=== PATIENT | male | born 1965 | race Caucasian/White ===

== ENCOUNTER 2018-03-28 12:07 | Observation (INO) | payer OTHER ==
--- NOTE | 2018-03-28 12:16 | EDPHY ---
H & P Time Seen by Provider: 03/28/18 12:12 HPI/ROS: CHIEF COMPLAINT: Syncope HISTORY OF PRESENT ILLNESS: Patient is a 53-year-old male who presents emergency department after having multiple syncopal episodes. Patient states that he hikes regularly at altitude. He has been draining for trip in the [facility] in April. He was hiking at approximately 9300 ft when he had increased shortness of breath. This was atypical. He also describes bilateral neck pain. He was slow coming down the mountain due to his fatigue. Once in the car the symptoms did not improve. He has his to take him to the hospital. He subsequently had multiple episodes of syncope. This was witnessed by the fire department. EMS found the patient awake and alert. He has been awake alert in route. He had no ischemic findings on his EKG. Patient still complains of mild bilateral neck discomfort. No focal weakness or numbness. No visual change. No chest pain. Patient shortness of breath has improved. No recent cough or fever. No leg pain or swelling. REVIEW OF SYSTEMS: My complete review of systems is negative except as mentioned in the HPI. Past Medical/Surgical History: Denies Physical Exam: Vitals noted GENERAL: Well-appearing, in no acute distress, alert. HEENT: Eyes normal to inspection, normal pharynx, no signs of dehydration. NECK: No thyromegaly, no lymphadenopathy, supple. RESPIRATORY: Clear to auscultation bilaterally, no rales, rhonchi or wheezing. CVS: Regular rate and rhythm, no rubs, murmurs, or gallops. ABDOMEN: Soft, nontender, nondistended, no organomegaly. BACK: Normal to inspection, no CVA tenderness. SKIN: Normal color, no rash, warm, dry. No pallor. EXTREMITIES: No pedal edema, no calf tenderness, no Homans sign or cords, no joint swelling. NEURO/PSYCH: Higher functions: Alert and Oriented x3. Normal speech and cognition. Normal mood and affect. Cranial nerves: Normal as tested. Cerebellar: Normal as tested. Good finger to nose, good [id number], normal gait. Peripheral exam: Normal motor exam. Normal sensation. Normal reflexes. Constitutional: Initial Vital Signs Temperature (C) 36.5 C 03/28/18 12:07 Heart Rate 77 03/28/18 12:07 Respiratory Rate 16 03/28/18 12:07 Blood Pressure 108/80 03/28/18 12:07 O2 Sat (%) 96 03/28/18 12:07 O2 Delivery Mode Nasal Cannula O2 (L/minute) 2 Allergies/Adverse Reactions: No Known Allergies Allergy (Unverified 03/28/18 12:16) Home Medications: Medication Instructions Recorded ARISTEO THYROID 03/28/18 HCTZ (*) 03/28/18 Levothyroxine 03/28/18 Levoxyl 03/28/18 Prilosec 03/28/18 buPROPion 03/28/18 Medical Decision Making - Diagnostics Imaging Results: Imaging Impressions Chest X-Ray 03/28/18 12:16 Impression: Chest negative for acute abnormality. ED Course/Re-evaluation: In the emergency department I met EMS on arrival. I took report from the manager compensation. Patient had been given normal saline 1 L IV in route. I reviewed the EKG from EMS. It was nonischemic. I discussed the plan with the patient. I answered all his questions. Patient's i-STAT creatinine was elevated at 2.2. Because of this CT angios of his head neck were canceled. Patient was given normal saline 500 mL IV. EKG shows normal sinus rhythm, normal rate, normal axis, first-degree AV block. There are no ST or T-wave abnormalities. There was a delay in obtaining labs. I called the lab to expedite the results. Patient's white count is mildly elevated. Chemistry panel still pending. I rechecked the patient while here. He was stable. He had no new complaints. Head CT: Please refer the dictated report by Dr. Ocampo. Patient has had significant surgery on his ear canals. No intracranial abnormality. I discussed the results with the patient. I confirmed his ear surgery. Patient will be admitted for further observation and evaluation. Carotid ultrasound was ordered. Differential Diagnosis: My differential includes but is not limited to ACS, acute MD, HAPE, HACE, pneumonia, bronchitis, dissection, aneurysm, CVA - Data Points Laboratory Results: Laboratory Results 03/28/18 12:19 03/28/18 12:19 03/28/18 03/28/18 03/28/18 12:29 12:24 12:19 WBC RBC Hgb POC Hgb 16.3 gm/dL gm/dL (13.7-17.5) Hct POC Hct 48 % % (40-51) MCV MCH MCHC RDW Plt Count MPV Neut % (Auto) Lymph % (Auto) Grimes % (Auto) Eos % (Auto) Baso % (Auto) Nucleat RBC Rel Count Absolute Neuts (auto) Absolute Lymphs (auto) Absolute Monos (auto) Absolute Eos (auto) Absolute Basos (auto) Absolute Nucleated RBC Immature Gran % Immature Gran # PT INR APTT POC Sodium 143 mEq/L mEq/L (135-145) Sodium 142 mEq/L mEq/L (135-145) POC Potassium 3.8 mEq/L mEq/L (3.3-5.0) Potassium 4.1 mEq/L mEq/L (3.3-5.0) POC Chloride 105 mEq/L mEq/L (97-110) Chloride 103 mEq/L mEq/L (97-110) Carbon Dioxide 25 mEq/l mEq/l (22-31) Anion Gap 14 mEq/L mEq/L (8-16) POC BUN 26 mg/dL H mg/dL (7-23) BUN 25 mg/dL H mg/dL (7-23) Creatinine 1.9 mg/dL H mg/dL (0.7-1.3) POC Creatinine 2.2 mg/dL H mg/dL (0.7-1.3) Estimated GFR 37 Glucose 102 mg/dL H mg/dL (70-100) POC Glucose 110 mg/dL H mg/dL (70-100) Calcium 9.3 mg/dL mg/dL (8.5-10.4) POC Troponin I 0.00 ng/mL ng/mL (0.00-0.08) 03/28/18 03/28/18 12:19 12:19 WBC 10.95 10^3/uL H 10^3/uL (3.80-9.50) RBC 5.68 10^6/uL 10^6/uL (4.40-6.38) Hgb 16.0 g/dL g/dL (13.7-17.5) POC Hgb Hct 48.5 % % (40.0-51.0) POC Hct MCV 85.4 fL fL (81.5-99.8) MCH 28.2 pg pg (27.9-34.1) MCHC 33.0 g/dL g/dL (32.4-36.7) RDW 13.6 % % (11.5-15.2) Plt Count 265 10^3/uL 10^3/uL (150-400) MPV 11.2 fL fL (8.7-11.7) Neut % (Auto) 82.6 % H % (39.3-74.2) Lymph % (Auto) 8.7 % L % (15.0-45.0) Grimes % (Auto) 6.8 % % (4.5-13.0) Eos % (Auto) 0.8 % % (0.6-7.6) Baso % (Auto) 0.5 % % (0.3-1.7) Nucleat RBC Rel Count 0.0 % % (0.0-0.2) Absolute Neuts (auto) 9.04 10^3/uL H 10^3/uL (1.70-6.50) Absolute Lymphs (auto) 0.95 10^3/uL L 10^3/uL (1.00-3.00) Absolute Monos (auto) 0.75 10^3/uL 10^3/uL (0.30-0.80) Absolute Eos (auto) 0.09 10^3/uL 10^3/uL (0.03-0.40) Absolute Basos (auto) 0.05 10^3/uL 10^3/uL (0.02-0.10) Absolute Nucleated RBC 0.00 10^3/uL 10^3/uL (0-0.01) Immature Gran % 0.6 % % (0.0-1.1) Immature Gran # 0.07 10^3/uL 10^3/uL (0.00-0.10) PT 13.8 SEC SEC (12.0-15.0) INR 1.04 (0.83-1.16) APTT 25.1 SEC SEC (23.0-38.0) POC Sodium Sodium POC Potassium Potassium POC Chloride Chloride Carbon Dioxide Anion Gap POC BUN BUN Creatinine POC Creatinine Estimated GFR Glucose POC Glucose Calcium POC Troponin I Point of Care Test Results: Chemistry 03/28/18 03/28/18 12:29 12:24 POC Sodium 143 mEq/L mEq/L (135-145) POC Potassium 3.8 mEq/L mEq/L (3.3-5.0) POC Chloride 105 mEq/L mEq/L (97-110) POC BUN 26 mg/dL H mg/dL (7-23) POC Creatinine 2.2 mg/dL H mg/dL (0.7-1.3) POC Glucose 110 mg/dL H mg/dL (70-100) POC Troponin I 0.00 ng/mL ng/mL (0.00-0.08) ISTAT H&H 03/28/18 12:29 POC Hgb 16.3 gm/dL gm/dL (13.7-17.5) POC Hct 48 % % (40-51) Departure - Departure Disposition: [facility] Inpatient Acute Clinical Impression: Syncope Qualifiers: Syncope type: unspecified Qualified Code(s): R55 - Syncope and collapse Condition: Good Referrals: Patient,NotPresent [Unknown] - As per Instructions
--- NOTE | 2018-03-28 12:40 | CPEKG ---
Heart Rate: 71 RR Interval: 845 P-R Interval: 220 QRSD Interval: 102 QT Interval: 408 QTC Interval: 444 P Medford: -2 QRS Medford: 15 T Wave Medford: 23 EKG Severity - ABNORMAL ECG - EKG Impression: SINUS RHYTHM EKG Impression: FIRST DEGREE AV BLOCK Electronically Signed By: Manuel Medina 29-Mar-2018 07:36:26
[2018-03-28 13:24] LABS: PLATELET COUNT 265 10^3/uL (150-400)
[2018-03-28 13:34] LABS: INR 1.04 (0.83-1.16); PROTIME(PATIENT) 13.8 SEC (12.0-15.0)
[2018-03-28] MEDS ORDERED: ONDANSETRON 4 MG/2 ML VIAL IVP PRN (14:39)
[2018-03-28] MEDS ORDERED: ONDANSETRON DISINTEGRATING 4 MG TAB PO PRN (14:39)
[2018-03-28] MEDS ORDERED: NS 1,000 ML IV ONE (14:39)
[2018-03-28] MEDS ORDERED: ACETAMINOPHEN 325 MG TAB PO PRN (14:39)
[2018-03-28 15:19] LABS: CREATINE KINASE 200 IU/L (0-224)
--- NOTE | 2018-03-28 15:35 | GHP ---
[f rep st] HISTORY AND PHYSICAL DATE OF ADMISSION: 03/28/2018 CHIEF COMPLAINT: Syncope. HISTORY OF PRESENT ILLNESS: This is a 53-year-old man who presents today with syncope. Recent history notable for being on a diet as well as training hard for a trip to [place] this summer. Today, he was training at altitude, about 9300 feet, slightly higher than normal. He felt worse on his hike than normal. He returned to his car, drank a bottle of juice, and then started driving. He asked his to drive. He then felt extremely poor, lightheaded, and had an episode of syncope that was associated with vomiting. He was out for about 10 seconds per his . He had a second episode as well. Prior to this, he had no nausea, vomiting, or diarrhea. Yesterday was a normal work day. He feels as though he has been maintaining his hydration, although he has been on a low-calorie diet. When he was hiking he had some pain in his bilateral neck. He denied any chest pain at the time. He did have worse shortness of breath than normal during a hike. He has never had an episode of syncope before. He has never seen a produce buyer, never had a stress test or echocardiogram. He believes he had a coronary CT about 10 to 15 years ago, which he was told was normal. He has not urinated all day. He has never been told that he has kidney problems before. He gets his labs checked about every 6 months by an apartment maintenance supervisor. He has been taking ibuprofen recently. He did take 400 mg today as well. He additionally complained of some right groin pain that occurred at the time of his syncope. It lasted about 2 minutes, was exquisite, however, no longer is causing him any pain. PAST MEDICAL/SURGICAL HISTORY: 1. Reva's thyroiditis. 2. Hypertension. 3. Retinal detachment status post surgery. 4. Childhood cholesteatoma status post mastoidectomy. 5. Shoulder pathology status post arthroscopic surgery. 6. Tonsillectomy. MEDICATIONS: Please see medication reconciliation. ALLERGIES: No known drug allergies. FAMILY HISTORY: His paternal grandmother had heart disease. SOCIAL HISTORY: Does not smoke. He does drink alcohol. He lives in [place], [place]. REVIEW OF SYSTEMS: A 10-point review of systems is conducted and is negative except per HPI. PHYSICAL EXAM: VITAL SIGNS: Blood pressure 98/72, heart rate 77, respiration rate 16, saturating 95% on 2 L. Temperature is 36.6. GENERAL: Mr. Jane is a pleasant man who is resting comfortably, in no acute distress. HEENT: Shows him to be normocephalic, atraumatic. He has dry mucous membranes. CARDIOVASCULAR: Shows a regular rate and rhythm. No murmurs, rubs, or gallops. PULMONARY: Shows him to be in no respiratory distress. His lungs are clear to auscultation bilaterally. ABDOMEN: Soft, nontender, nondistended. SKIN: Shows no rash. : Shows no Fenton. NEUROLOGIC: Shows him to be alert and oriented x3. He is moving all extremities. PSYCHIATRIC: Exam shows a normal mood and affect. LABS: White count is 10.5. INR is 1.0. Basic metabolic panel shows a creatinine of 1.9, BUN of 25, and initial troponin is zero. DATA: 1. I reviewed his chart including the ED physician's note. 2. I reviewed his head CT. This is negative. Does show findings compatible with his mastoidectomy. 3. EKG, which I personally viewed and interpreted, shows sinus rhythm. He has a 1st degree AV block. 4. Chest x-ray, which I personally viewed and interpreted, shows nothing acute. IMPRESSION AND PLAN: A 53-year-old man presents with syncope as well as renal failure. 1. Syncope: Suspect most likely vasovagal versus dehydration. I think, given his desire to continue training at a high level, it is reasonable to pursue further diagnosis. We will monitor him on telemetry, check an echocardiogram, check an exercise treadmill tomorrow. We will also trend his troponins. 2. Renal failure: He has no history of kidney disease. I suspect that this is acute given his history of routinely seeing an apartment maintenance supervisor and never being told about this. I am concerned that his BUN is not as elevated as one would expect for prerenal. We will check a CK, urinalysis, urine electrolytes. We will aggressively hydrate him. If he does not make any urine, we will perform a renal ultrasound. 3. Neck pain: Carotid ultrasound is pending. 4. Leg pain: Lower extremity ultrasound to rule out DVT is pending. 5. Hypertension: Hold his antihypertensive. 6. Hypothyroid: Synthroid. /[id number]/MODL MTDD
[2018-03-28] MEDS: NS 1,000 ML IV SCH (17:55)
--- NOTE | 2018-03-28 18:50 | ECHO ---
[email or web address] [address] [address] Main: [phone] Fax: Transthoracic Echocardiogram Name: CHERYL CORDOBA MR#: [id number] Study Date: 03/28/2018 Study Time: 04:15 PM Date of : 1965 Age: 53 year(s) Height: 195.6 cm (77 in.) Weight: 136.08 kg (300 lb.) BSA: 2.66 m2 Gender: Male Examination: Echo Indication: Cardiac: syncope Image Quality: Contrast: Requested by: Sergio Witt BP: / Heart Rate: Rhythm: Indication: Cardiac: syncope Procedure Staff Central Service Technician: Jennifer Booth [facility] Reading Physician: Noah Krause MD Requesting Provider: Conclusions: Normal size left ventricle. No LV hypertrophy. Normal global systolic LV function. The ejection fraction is estimated to be 65-70 %. No regional wall motion abnormality. Normal size right ventricle. The left atrium is mildly dilated. The right atrium is normal in size. Trivial to mild mitral regurgitation. Chordal BEATRIZ of the anterior mitral leaflet without obstruction.. The aortic valve is normal in appearance and function. The aortic valve is tri-leaflet. The tricuspid valve is normal in appearance and function. Trivial to mild tricuspid valve regurgitation. The pulmonic valve is normal in appearance and function. Normal size ascending aorta measuring 4.1 cm. No previous Measurements: Chambers Valvular Assessment AV/MV Valvular Assessment TV/PV Normal Normal Normal Name Value Range Name Value Range Name Value Range Ao Melissa (MM): 4.0 cm (2.2 cm-3.7 AV Vmax: 1.22 m/s (1 m/s-1.7 cm) m/s) IVSd (2D): 1.2 cm (0.6 cm-1.1 AV meanP mmHg ( - ) cm) MV E Vmax: 0.68 m/s ( - ) LVDd (2D): 5.0 cm (4.2 cm-5.9 MV A Vmax: 0.52 m/s ( - ) cm) MV E/A: 1.31 ( - ) LVDs (2D): 3.2 cm (2.1 cm-4 cm) Patient: CHERYL CORDOBA Study Date: 03/28/2018 Page 1 of 2 04:15 PM LVPWd (2D): 0.9 cm (0.6 cm-1 cm) LVEF (2D): 66 (>=54 %) EF Range: 65-70 % Continued Measurements: Chambers Valvular Assessment AV/MV Name Value Name Value LADs: 4.7 cm MV E' Septal: 0.08 m/s MV E/E' Septal: 8.40 MV E/E' Lateral: 4.80 Additional Vessels Name Value Ao Ascendin.1 cm Findings: Left Ventricle: Normal size left ventricle. No LV hypertrophy. Normal global systolic LV function. The ejection fraction is estimated to be 65-70 %. No regional wall motion abnormality. Right Ventricle: Normal size right ventricle. Left Atrium: The left atrium is mildly dilated. Right Atrium: The right atrium is normal in size. Mitral Valve: Trivial to mild mitral regurgitation. Chordal BEATRIZ of the anterior mitral leaflet without obstruction.. Aortic Valve: The aortic valve is normal in appearance and function. The aortic valve is tri-leaflet. Tricuspid Valve: The tricuspid valve is normal in appearance and function. Trivial to mild tricuspid valve regurgitation. Pulmonic Valve: The pulmonic valve is normal in appearance and function. Aorta: The aorta is normal. Normal size ascending aorta measuring 4.1 cm. Pericardium: No pericardial effusion. (No Signature Object) Patient: CHERYL CORDOBA Study Date: 03/28/2018 Page 2 of 2 04:15 PM [id number]
[2018-03-29] MEDS: NS 1,000 ML IV SCH (02:13)
[2018-03-29 04:41] LABS: PLATELET COUNT 223 10^3/uL (150-400)
[2018-03-29] MEDS ORDERED: PNEUMOCOCCAL 0.5ML VACCINE VIAL IM ONE ×2 (07:44→14:00)
--- NOTE | 2018-03-29 11:49 | ASMTCMCOM ---
CM Note CM Note Notes: Anticipate dc home independently when medically stable. CM will follow if needs/changes. Dc poc-Independent Date Signed: 03/29/2018 11:48 AM Electronically Signed By:Maegan Villegas RN
[2018-03-29 12:04] VITALS: BP 127/78
--- NOTE | 2018-03-29 14:46 | ASDISCHSUM ---
Discharge Information Plan Status:Home with No Needs Medically Cleared to Leave: Discharge Date:03/29/2018 02:40 PM CM D/C Disposition:Home, Routine, Self-Care ADT D/C Disposition:Home, Routine, Self-Care Projected Discharge Date:03/29/2018 02:40 PM Transportation at D/C:Family Discharge Delay Reason: Follow-Up Date:03/29/2018 02:40 PM Discharge Slot: Final Diagnosis: Placement Information Patient Contact Information Contact Name:NAOMIE Relationship: Address:[address] [address] Work Phone: City:[facility] Phone: [facility] [address]/Zip Code:[place] [address] Email: Financial Information Financial Class:HMO and PPO Plans Primary Plan Desc:[facility] Primary Plan Number:[id number] Secondary Plan Desc: Secondary Plan Number: Assessment Information LACE LACE Length of stay for Answers: 1 day current admission Acuity / Level of Answers: No Care: Did the patient have an inpatient admission? # of Emergency department Answers: 1-2 visits in the last 6 months Score: 2 Date Signed: 03/29/2018 02:45 PM Electronically Signed By:Maegan Villegas RN [facility] CM Progress Note CM Note CM Note Notes: Anticipate dc home independently when medically stable. CM will follow if needs/changes. Dc poc-Independent Date Signed: 03/29/2018 11:48 AM Electronically Signed By:Maegan Villegas RN Intervention Information
--- NOTE | 2018-03-29 18:45 | CPR ---
[f rep st] NONINVASIVE CARDIAC PROCEDURE REPORT PROCEDURE: Stress EKG; treadmill stress test using Dago protocol. REASON: Syncope of unknown origin. DESCRIPTION OF PROCEDURE: Patient had normal baseline EKG. Patient walked on the Dago protocol for 9 minutes, 28 seconds. Maximum heart rate greater than 85% of predicted. Blood pressure at baselin e 130/70; at peak exercise, 179/89. Patient had upsloping ST changes. These are not indicative of i schemia. The patient has no symptoms during the procedure. Douglas treadmill score is 9, indicative of low cardiovascular risk. CONCLUSION: Normal stress EKG test. /[id number]/MODL
--- NOTE | 2018-03-29 19:29 | GDS ---
[f rep st] DISCHARGE SUMMARY DISCHARGE DIAGNOSES: 1. Syncope, suspect volume depletion versus vasovagal event. 2. Supraventricular tachycardia. 3. Acute kidney injury, resolved. HISTORY: For details, please see the history and physical dated 03/28/2018. In brief, the patient i s a 53-year-old male who was out hiking at high elevation in a strenuous manner, and developed syncop e after his workout. He was admitted to the hospital for further management. HOSPITAL COURSE: The patient was admitted to the cardiac telemetry unit. He was noted to have a 3- to 4-second run of atrial tachycardia during the night while he was sleeping. This was asymptomatic. He states he has a history of intermittent heart palpitations since he was a kid. It seems unlikel y that this would be the source of his syncope, though I did recommend he have an outpatient cardiac event monitor and consultation with Cardiology. I offered him low-dose beta alexa in an effort to prevent SVT. He deferred this. Given his level of activity, he underwent a thorough workup, including carotid artery Doppler study, which was negati ve for arterial occlusive disease. A head CT was negative for intracranial abnormality. An echocard iogram showed a normal ejection fraction of 65% to 70%, with no wall motion abnormality; normal-size ascending aorta measuring 4.1 cm; and trivial to mild mitral regurgitation. His EKG was not ischemic , though he was noted to have a first-degree heart block. He had negative troponins. He underwent e xercise treadmill stress test and, per verbal report from the bar gauger and lubricator tender, this was negative for rahul dence of ischemia. The patient received IV fluid hydration. He had no further symptoms such as presyncope or chest pain . He is deemed stable for discharge home. DISPOSITION: Patient is discharged home in stable condition. FOLLOWUP: I recommend he follow up with his primary care physician and obtain referral to Cardiology to discuss an outpatient cardiac event monitor. DISCHARGE MEDICATIONS: Please see Qinti for complete list of outpatient medication list. There a re no new medications on discharge. He will take all outpatient medications as previously prescribed . /[id number]/MODL
== END 2018-03-29 14:40 | disposition home or self-care (01) ==
LOC: F2W 16:10
PROVIDERS: ADMIT Student in an Organized Health Care Education/Training Program; ATTEND Hospitalist
DX: R55 Syncope and collapse (principal); I47.1 Supraventricular tachycardia; N17.9 Acute kidney failure, unspecified; E86.9 Volume depletion, unspecified; M79.661 Pain in right lower leg; I44.0 Atrioventricular block, first degree; M54.2 Cervicalgia; E03.9 Hypothyroidism, unspecified; I10 Essential (primary) hypertension; Z23 Encounter for immunization
CPT/HCPCS: 70450; 71046; 90471; 93005; 93017; 93306; 93880; 93971; G0378; 82435-PO; 82565-PO; 82947-PO; 84132-PO; 84295-PO; 84484-PO; 84520-PO; 85014-PO; G0009